=== PATIENT | male | born 1950 | race Caucasian/White ===

== ENCOUNTER 2016-11-08 20:32 | Emergency (ER) | payer BC, MEDICARE, OTHER ==
[2016-11-08 20:38] VITALS: RESP 20; TEMP 96.8
[2016-11-08 21:05] VITALS: BP 180/92; PULSE 95; O2SAT 95
== END 2016-11-08 21:58 | disposition home or self-care (01) | DRG 74 ==
LOC: ED 20:32
DX: E11.42 Type 2 diabetes mellitus with diabetic polyneuropathy (principal); I73.9 Peripheral vascular disease, unspecified; R20.2 Paresthesia of skin
CPT/HCPCS: 72070; 72120; 99282

== ENCOUNTER 2018-07-02 12:36 | Inpatient (IN) | payer OTHER, BC ==
[2018-07-02] MEDS ORDERED: ALBUTEROL/IPRATROPIUM 1 VIAL SOL ONE (12:41)
[2018-07-02] MEDS ORDERED: ALBUTEROL/IPRATROPIUM 1 VIAL SOL INH ONE (12:49)
[2018-07-02] MEDS ORDERED: SOLUMEDROL 125 MG/2 ML 125 MG/2 ML PDS IV ONE (12:49)
[2018-07-02] MEDS: SODIUM CHLORIDE 0.9% FLUSH 10 ML SOL IV PRN (12:55)
[2018-07-02] MEDS ORDERED: SOLUMEDROL 125 MG/2 ML 125 MG/2 ML PDS ONE (12:58)
[2018-07-02 13:23] LABS: ABG PH 7.4 (7.35-7.45)
[2018-07-02] MEDS ORDERED: ALBUTEROL NEB SOL 2.5MG/3ML 1 VIAL SOL NEB PRN (19:12)
[2018-07-02] MEDS: ALBUTEROL/IPRATROPIUM 1 VIAL SOL INH SCH (20:09)
[2018-07-02] MEDS: SOLUMEDROL 125 MG/2 ML 125 MG/2 ML PDS IV SCH (20:16)
[2018-07-02] MEDS: NICOTINE 21 MG PATCH TD SCH (20:19)
[2018-07-02] MEDS: AZITHROMYCIN 250 MG TAB PO SCH (20:20)
[2018-07-02] MEDS: GABAPENTIN 300 MG CAP PO SCH (20:23)
[2018-07-02] MEDS: LISINOPRIL 20 MG TAB PO SCH (20:25)
[2018-07-02] MEDS ORDERED: METFORMIN HYDROCHLORIDE 500 MG TAB PO SCH ×2 (21:00)
[2018-07-02] MEDS ORDERED: METFORMIN HYDROCHLORIDE 500 MG TAB PO ONE (21:00)
[2018-07-02] MEDS ORDERED: ATORVASTATIN CALCIUM 80 MG TAB PO SCH (21:00)
[2018-07-03] MEDS: SOLUMEDROL 125 MG/2 ML 125 MG/2 ML PDS IV SCH ×4 (02:04→20:04)
[2018-07-03] MEDS: SODIUM CHLORIDE 0.9% FLUSH 10 ML SOL IV PRN ×2 (02:04→20:04)
[2018-07-03] MEDS: ALBUTEROL/IPRATROPIUM 1 VIAL SOL INH SCH ×4 (02:05→20:02)
[2018-07-03] MEDS: SODIUM CHLORIDE 0.9% FLUSH 10 ML SOL IV SCH ×4 (07:37→18:43)
[2018-07-03] MEDS: METFORMIN HYDROCHLORIDE 500 MG TAB PO SCH ×2 (07:38→18:44)
[2018-07-03] MEDS ORDERED: METFORMIN HYDROCHLORIDE 500 MG TAB PO SCH (08:00)
[2018-07-03] MEDS: AMLODIPINE 5 MG TAB PO SCH (09:52)
[2018-07-03] MEDS: AZITHROMYCIN 250 MG TAB PO SCH (09:52)
[2018-07-03] MEDS: GABAPENTIN 300 MG CAP PO SCH ×2 (09:54→20:10)
[2018-07-03] MEDS: NICOTINE 21 MG PATCH TD SCH (20:04)
[2018-07-03] MEDS: LISINOPRIL 20 MG TAB PO SCH (20:10)
[2018-07-04] MEDS: SODIUM CHLORIDE 0.9% FLUSH 10 ML SOL IV SCH ×2 (01:50→11:37)
[2018-07-04] MEDS: ALBUTEROL/IPRATROPIUM 1 VIAL SOL INH SCH ×2 (01:50→07:44)
[2018-07-04] MEDS: SOLUMEDROL 125 MG/2 ML 125 MG/2 ML PDS IV SCH ×2 (01:50→11:36)
[2018-07-04] MEDS: METFORMIN HYDROCHLORIDE 500 MG TAB PO SCH (07:42)
[2018-07-04 07:46] VITALS: RESP 20
[2018-07-04 07:51] VITALS: BP 173/84; TEMP 97.5
[2018-07-04] MEDS: AMLODIPINE 5 MG TAB PO SCH (09:10)
[2018-07-04] MEDS: GABAPENTIN 300 MG CAP PO SCH (09:10)
[2018-07-04] MEDS: AZITHROMYCIN 250 MG TAB PO SCH (09:10)
[2018-07-04 11:35] VITALS: PULSE 105; O2SAT 94
== END 2018-07-04 11:25 | disposition home or self-care (01) | DRG 192 ==
LOC: ED 12:36 → ACUTE CARE 15:45 → UNDOADMIN 15:46 → ACUTE CARE 15:46
PROVIDERS: ADMIT Family Medicine; ATTEND Family Medicine
DX: J44.1 Chronic obstructive pulmonary disease with (acute) exacerbation (principal); R06.02 Shortness of breath; Z72.0 Tobacco use; R09.02 Hypoxemia; E11.40 Type 2 diabetes mellitus with diabetic neuropathy, unspecified; I10 Essential (primary) hypertension
CPT/HCPCS: 36600; 82803; 82962; 83880; 84484; 94010; 94150; 94375; 94640; 94664; 96374; 99284; 99285; J2930; J7613; A9270-GY